=== PATIENT | female | born 1995 | race African-American/Black ===

== ENCOUNTER 2021-05-16 17:11 | Emergency (ER) | payer OTHER ==
[2021-05-16 17:38] VITALS: BP 100/63; PULSE 67; TEMP 98.2; BMI 35.4
[2021-05-16 19:56] LABS: URINE APPEARANCE CLEAR; URINE BILIRUBIN NEGATIVE (NEGATIVE); URINE COLOR YELLOW; URINE GLUCOSE (UA) NEGATIVE (NEGATIVE); URINE KETONE TRACE (NEGATIVE); URINE LEUK ESTERASE NEGATIVE (NEGATIVE); URINE NITRITE NEGATIVE (NEGATIVE); URINE PROTEIN NEGATIVE (NEGATIVE)
[2021-05-16 19:59] LABS: BASO % 0.8 % (0-2.0); EOS % 1.8 % (0-4.5); HEMATOCRIT 37.5 % (32.4-45.2); HEMOGLOBIN 12.8 GM/dL (10.7-15.3); LYMPH % 27.1 % (8-40); MCH 31.4 pg (25.7-33.7); MCHC 34.1 g/dl (32.0-36.0); MEAN CELL VOLUME 92.2 fl (80-96); MEAN PLT VOLUME 7.4 fl (7.5-11.1); MONO % 10.6 % (3.8-10.2); NEUT % 59.7 % (42.8-82.8); PLATELET COUNT 321 10^3/uL (134-434); RBC 4.06 M/mm3 (3.60-5.2); RDW 16.4 % (11.6-15.6); WHITE BLOOD COUNT 5.6 K/mm3 (4.0-10.0)
== END 2021-05-16 22:10 | disposition left against medical advice (07) ==
LOC: JER 17:11
DX: O26.891 Other specified pregnancy related conditions, first trimester (principal); R10.9 Unspecified abdominal pain; Z3A.01 Less than 8 weeks gestation of pregnancy
CPT/HCPCS: 36415; 76817-TC; 81003; 84702; 85025; 87086; 99284-25

== ENCOUNTER 2021-05-23 13:27 | Emergency (ER) | payer OTHER ==
[2021-05-23 13:35] VITALS: BP 106/67; PULSE 62; TEMP 98.8; BMI 35.4
[2021-05-23 16:23] LABS: EPI CELLS >36 /uL (0-25.1); HYALINE CASTS 6 /uL (0-3.1); PH,URINE 5.5 (5.0-8.0); URINE APPEARANCE CLOUDY; URINE BACTERIA 1753 /uL (0-1359); URINE BILIRUBIN NEGATIVE (NEGATIVE); URINE COLOR YELLOW; URINE GLUCOSE (UA) NEGATIVE (NEGATIVE); URINE KETONE TRACE (NEGATIVE); URINE LEUK ESTERASE 1+ (NEGATIVE); URINE NITRITE NEGATIVE (NEGATIVE); URINE PROTEIN TRACE (NEGATIVE); URINE RBC 10 /uL (0-23.9); URINE UROBILINOGEN 0.2 mg/dL (0.2-1.0); URINE WBC 149 /uL (0-25.8)
== END 2021-05-23 18:48 | disposition home or self-care (01) ==
LOC: JER 13:27
DX: O03.9 Complete or unspecified spontaneous abortion without complication (principal)
CPT/HCPCS: 36415; 76817-TC; 81003; 84702; 86850; 86900; 86901; 87086; 99284-25

== ENCOUNTER 2021-06-08 16:41 | Emergency (ER) | payer OTHER ==
[2021-06-08 16:51] VITALS: BP 108/71; PULSE 70; TEMP 98.4; BMI 35.7
[2021-06-08] MEDS ORDERED: METOCLOPRAMIDE HCL 10 MG TABLET (FP) PO ONE ×2 (17:19→17:32)
[2021-06-08] MEDS ORDERED: ACETAMINOPHEN 325 MG TABLET (FP) PO ONE (17:19)
[2021-06-08] MEDS ORDERED: ACETAMINOPHEN 325 MG TABLET (FP) ONE (17:32)
== END 2021-06-08 17:38 | disposition home or self-care (01) ==
LOC: JER 16:41
DX: O26.891 Other specified pregnancy related conditions, first trimester (principal); R10.84 Generalized abdominal pain; Z3A.08 8 weeks gestation of pregnancy
CPT/HCPCS: 99283-25

== ENCOUNTER 2021-07-30 11:17 | Emergency (ER) | payer OTHER ==
[2021-07-30 11:40] VITALS: BP 109/57; PULSE 67; TEMP 98; BMI 35.7
[2021-07-30 13:51] LABS: EPI CELLS >36 /uL (0-25.1); HYALINE CASTS 1 /uL (0-3.1); PH,URINE 6.5 (5.0-8.0); URINE APPEARANCE CLEAR; URINE BACTERIA 636 /uL (0-1359); URINE BILIRUBIN NEGATIVE (NEGATIVE); URINE COLOR YELLOW; URINE GLUCOSE (UA) NEGATIVE (NEGATIVE); URINE KETONE NEGATIVE (NEGATIVE); URINE LEUK ESTERASE 1+ (NEGATIVE); URINE NITRITE NEGATIVE (NEGATIVE); URINE PROTEIN NEGATIVE (NEGATIVE); URINE RBC 4 /uL (0-23.9); URINE UROBILINOGEN 0.2 mg/dL (0.2-1.0); URINE WBC 31 /uL (0-25.8)
== END 2021-07-30 17:19 | disposition home or self-care (01) ==
LOC: JER 11:17
DX: O20.0 Threatened abortion (principal)
CPT/HCPCS: 36415; 76817-TC; 81003; 84702; 87086; 99284-25

== ENCOUNTER 2021-09-22 23:57 | Emergency (ER) | payer OTHER ==
[2021-09-23 00:32] VITALS: BMI 36.1
[2021-09-23 04:36] VITALS: BP 111/66; PULSE 75; TEMP 98.2
== END 2021-09-23 04:05 | disposition home or self-care (01) ==
LOC: JER 23:57
DX: O42.92 Full-term premature rupture of membranes, unspecified as to length of time between rupture and onset of labor (principal); Z03.71 Encounter for suspected problem with amniotic cavity and membrane ruled out; Z3A.24 24 weeks gestation of pregnancy
CPT/HCPCS: 76801-TC; 99284-25

== ENCOUNTER 2024-03-29 22:22 | Emergency (ER) | payer OTHER ==
[2024-03-29 22:27] VITALS: BP 127/88; PULSE 66; RESP 20; TEMP 98.7; BMI 40.0
[2024-03-29 23:47] LABS: BASO % 0.5 % (0-2.0); EOS % 2.5 % (0-4.5); HEMATOCRIT 37.6 % (32.4-45.2); HEMOGLOBIN 13.1 GM/dL (10.7-15.3); LYMPH % 42.8 % (8-40); MCH 31.1 pg (25.7-33.7); MCHC 34.7 g/dl (32.0-36.0); MEAN CELL VOLUME 89.6 fl (80-96); MEAN PLT VOLUME 7.6 fl (7.5-11.1); MONO % 9.6 % (3.8-10.2); NEUT % 44.6 % (42.8-82.8); PLATELET COUNT 350 10^3/uL (134-434); RDW 14.6 % (11.6-15.6); WHITE BLOOD COUNT 5.8 K/mm3 (4.0-10.0)
== END 2024-03-30 00:15 | disposition home or self-care (01) ==
LOC: JER 22:22
DX: N93.9 Abnormal uterine and vaginal bleeding, unspecified (principal)
CPT/HCPCS: 36415; 84703; 85025; 99283-25